=== PATIENT | male | born 1960 | race Caucasian/White ===

== ENCOUNTER → 2018-01-13 | Outpatient (CLI) | payer OTHER ==
[~2018-01-13] MED LIST: IOPAMIDOL 370 MG/ML 200 ML INFUS..BTL INJ ONE; SODIUM CHLORIDE 0.9% 50ML 50 ML ONE
[2018-01-13 09:06] LABS: BLOOD UREA NITROGEN 13 mg/dL (8-26); BUN/CREATININE RATIO 19 (6-25); CREATININE, SERUM 0.7 mg/dL (0.9-1.3); EST GLOMERULAR FILTRATION RATE > 60 ML/MIN (60-)
--- NOTE | 2018-01-16 12:39 | Diagnostic Imaging Report ---
EXAM: CTA OF THE THORACIC AORTA INDICATION: \[id number] \S\[id number] \S\HISTORY OF TAA S/P REPAIR COMPARISON: None. TECHNIQUE: Multi-detector CT technology was employed. CTA Gated axial imaging of the chest was performed after the administration of IV contrast. IV CONTRAST: 100 mL of Isovue-370 ORAL CONTRAST: None COMPLICATIONS: None RADIATION DOSE: Total DLP: 1009 mGy*cm Estimated effective dose: (DLP x 0.015 x size factor) mSv CTDIvol has been reviewed. It is below the limits set by the Radiation Protocol Committee (RPC). For optimization of anatomic evaluation, multiplanar reconstruction, maximum intensity projections, and advanced 3-D off-line postprocessing were performed on a dedicated stand-alone workstation under the direct supervision of the interpreting physician. FINDINGS: Potential study limitations: None. LINES/ TUBES: None. VASCULAR WITH ADVANCED 3-D OFF-LINE POSTPROCESSING: Aortic valve morphology is trileaflet and contains mild calcifications. 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 The graft is intact. The mid and distal descending thoracic aorta is normal in caliber. There is no acute aortic pathology, such as dissection, intramural hematoma, or contained rupture. Aortic plaques: Mild atherosclerotic calcifications throughout the thoracic aorta. The arch vessel branching pattern is unremarkable for common origin of the innominate and left common carotid artery. All of the arch branch vessels appear widely patent in their proximal portions. Therapeutic Dietitian dimensions of the thoracic aorta are as follows: 24 cm at the aortic annulus 3.9 x 3.7 cm at the sinuses of Valsalva (the sinotubular junction is preserved) 3.9 cm at the mid ascending aorta 3.4 cm at the distal ascending aorta 2.6 cm at the mid transverse arch 3.1 cm at the proximal descending thoracic aorta 2.7 cm at the diaphragmatic hiatus. LUNGS AND AIRWAYS: Mild to moderate centrilobular and paraseptal emphysema. No suspicious pulmonary nodules or consolidations. Airways are patent. PLEURA: The pleural spaces are clear. HEART AND MEDIASTINUM: The thyroid gland is normal. Few nonspecific subcentimeter mediastinal lymph nodes. The main pulmonary artery is normal in size. The cardiac chambers demonstrate normal atrioventricular and ventriculoarterial concordance, and systemic and pulmonary venous return. The cardiac chambers are normal in size. The coronary arteries have normal origins and courses. There are diffuse coronary calcifications identified, though this study was not optimized for coronary artery evaluation. There is no pericardial effusion. LIMITED ABDOMEN: The limited images of the upper abdomen reveal no abnormalities of the visualized organs. BONES: Intact median sternotomy wires. 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 Graft appears intact. No acute aortic pathology. Signed by: Dr. eKri Mills M.D. on 01/16/2018 12:31 PM
== END ==
LOC: CT 08:33
PROVIDERS: ATTEND Internal Medicine
DX: Z98.890 Other specified postprocedural states (principal)
CPT/HCPCS: 36415; 71275; 82565; 84520; Q9967